=== PATIENT | male | born 1980 | race Caucasian/White ===

== ENCOUNTER 2018-03-27 13:20 | Observation (INO) | payer BC ==
[~2018-03-27] VITALS: Ht 175.3 cm; Wt 90.7 kg
[~2018-03-27 13:20] MED LIST: ASPI325; CELE200; CEPH500 PO; CYCL10 PO; EPIN.3I IM; ERYT.5TO OD; Fiorinal Capsu1 EACH PO; HYDACE5; HYDACE5 PO; HYDROMORPHONE 1 MG; META400 PO; OXYACE5T PO; PROM25 PO; RXHYDACE PO; RXPROM25 PO; [UNRECOGNIZED DRUG - OTHER]
[2018-03-27 14:03] LABS: BASOPHILS ABSOLUTE AUTO 0.05 K/mm3 (0.00-0.23); BASOPHILS PERCENT AUTO 1 % (0-2); EOSINOPHILS ABSOLUTE AUTO 0.12 K/mm3 (0.00-0.68); EOSINOPHILS PERCENT AUTO 2 % (0-6); Hematocrit 45.1 % (37.0-53.0); IMMATURE GRAN ABSOLUTE AUTO 0.03 K/mm3 (0.00-0.10); IMMATURE GRAN PERCENT AUTO 1 % (0-1); LYMPHOCYTES ABSOLUTE AUTO 0.88 K/mm3 (0.84-5.20); LYMPHOCYTES PERCENT AUTO 15 % (21-46); MONOCYTES ABSOLUTE AUTO 0.77 K/mm3 (0.16-1.47); MONOCYTES PERCENT AUTO 13 % (4-13); Mean Corpuscular HGB 29.4 pg (26.0-34.0); Mean Corpuscular HGB Conc 33.3 g/dL (31.5-36.5); Mean Corpuscular Volume 88 fL (80-100); Mean Platelet Volume 10.2 fL (9.1-12.4); NEUTROPHILS PERCENT AUTO 69 % (41-73); Platelet Count 256 K/mm3 (150-400); RDW Coefficient Variation 13.5 % (11.7-14.2); White Blood Cell Count 5.95 K/mm3 (4.00-11.30)
[2018-03-27 14:15] LABS: Salicylate <1.7 mg/dL (2.8-20.0)
[2018-03-27 14:16] LABS: Alanine Aminotransfer (ALT/SGP 37 U/L (12-78); Albumin/Globulin Ratio 1.2 (0.8-1.8); Alk Phos 74 U/L (50-136); Anion Gap 10 mmol/L (6-16); Aspartate Aminotrans (AST/SGOT 23 U/L (12-37); Bilirubin, Total 0.3 mg/dL (0.1-1.0); Blood Urea Nitrogen 8 mg/dL (8-24); Bun/Creatinine Ratio 12.1 (12.0-20.0); CO2, Blood 22 mmol/L (21-32); Calcium, Blood 8.1 mg/dL (8.5-10.1); Chloride, Blood 110 mmol/L (98-108); Creatinine, Blood 0.66 mg/dL (0.60-1.20); Globulin, Blood 3.4 g/dL (2.2-4.0); Glomerular Filtration Rate >60 (60-); Glucose, Blood 86 mg/dL (70-99); Potassium, Blood 3.5 mmol/L (3.5-5.5); Sodium, Blood 142 mmol/L (136-145); Total Protein, Blood 7.4 g/dL (6.4-8.2)
[2018-03-27 14:20] LABS: Thyroid Stimulating Hormone 0.746 uIU/mL (0.360-4.800)
[2018-03-27 14:24] LABS: Acetaminophen, Random <2.0 ug/mL (10.0-30.0); Ethanol (Alcohol), Blood, Med <3 mg/dL
[2018-03-27 14:37] LABS: Source, Urine Clean Catch
[2018-03-27 14:47] LABS: Bilirubin, Urine Neg (Neg); Blood, Urine Neg (Neg); Glucose Qualitative, Urine Neg (Neg); Ketones, Urine Neg (Neg); Leukocyte Esterase, Urine Neg (Neg); Nitrite, Urine Neg (Neg); Protein, Urine Neg (Neg); Urobilinogen, Urine NORM (Normal)
[2018-03-27 15:00] LABS: U Amphetamine Screen Not Detected; U Barbituate Screen Not Detected; U Benzodiazapine Screen Not Detected; U Buprenorphine Screen Not Detected; U Cannabinoids Screen DETECTED; U Cocaine Screen Not Detected; U Methadone Screen Not Detected; U Methamphetamine Screen Not Detected; U Opiates Screen Not Detected; U Oxycodone Screen Not Detected; U Phencyclidine Screen Not Detected; U Propoxyphene Screen Not Detected
[2018-03-27 15:01] LABS: Appearance, Urine Clear (Clear); Color, Urine Yellow (P-Yellow)
[2018-03-27] MEDS ORDERED: TYLENOL #3 PO (18:46)
== END 2018-03-29 08:25 ==
LOC: ER 13:20 → EOR 13:21
PROVIDERS: Physician Assistant; ADMIT Emergency Medicine
DX: T48.1X2A Poisoning by skeletal muscle relaxants [neuromuscular blocking agents], intentional self-harm, initial encounter (principal); F32.9 Major depressive disorder, single episode, unspecified; Z91.030 Bee allergy status; Z88.1 Allergy status to other antibiotic agents; Z87.891 Personal history of nicotine dependence; Z79.899 Other long term (current) drug therapy
CPT/HCPCS: 80053; 81003; 84443; 85025; 93005; 93010; 96372; 99285-25; G0378; G0480; J1200; J1630; J2060; Q0163; Q3014

== ENCOUNTER 2018-05-20 16:48 | Inpatient (IN) | payer BC ==
[~2018-05-20] VITALS: Ht 175.3 cm; Wt 82.7 kg
[~2018-05-20 16:48] MED LIST changes: +Acetaminophen-1 EAC1 PO
[2018-05-20 17:09] LABS: BASOPHILS ABSOLUTE AUTO 0.04 K/mm3 (0.00-0.23); BASOPHILS PERCENT AUTO 1 % (0-2); EOSINOPHILS ABSOLUTE AUTO 0.31 K/mm3 (0.00-0.68); EOSINOPHILS PERCENT AUTO 4 % (0-6); Hematocrit 39.5 % (37.0-53.0); Hemoglobin 13.5 g/dL (13.5-17.5); IMMATURE GRAN ABSOLUTE AUTO 0.02 K/mm3 (0.00-0.10); IMMATURE GRAN PERCENT AUTO 0 % (0-1); LYMPHOCYTES ABSOLUTE AUTO 1.68 K/mm3 (0.84-5.20); LYMPHOCYTES PERCENT AUTO 22 % (21-46); MONOCYTES ABSOLUTE AUTO 0.63 K/mm3 (0.16-1.47); MONOCYTES PERCENT AUTO 8 % (4-13); Mean Corpuscular HGB 29.3 pg (26.0-34.0); Mean Corpuscular HGB Conc 34.2 g/dL (31.5-36.5); Mean Corpuscular Volume 86 fL (80-100); Mean Platelet Volume 10.4 fL (9.1-12.4); NEUTROPHILS ABSOLUTE AUTO 4.87 K/mm3 (1.96-9.15); NEUTROPHILS PERCENT AUTO 65 % (41-73); Platelet Count 202 K/mm3 (150-400); RDW Coefficient Variation 13.3 % (11.7-14.2); RDW Standard Deviation 41.6 fL (35.1-46.3); White Blood Cell Count 7.55 K/mm3 (4.00-11.30)
[2018-05-20 17:22] LABS: PCO2 Arterial 40.9 mmHg (35-45); PO2 Arterial 89.9 mmHg (80-100); pH Blood Arterial 7.39 (7.35-7.45)
[2018-05-20 17:29] LABS: U Amphetamine Screen Not Detected; U Barbituate Screen Not Detected; U Benzodiazapine Screen DETECTED; U Buprenorphine Screen Not Detected; U Cannabinoids Screen DETECTED; U Cocaine Screen Not Detected; U Methadone Screen Not Detected; U Methamphetamine Screen Not Detected; U Opiates Screen DETECTED; U Oxycodone Screen Not Detected; U Phencyclidine Screen Not Detected; U Propoxyphene Screen Not Detected
[2018-05-20 17:34] LABS: Source, Urine Catheter
[2018-05-20 17:34] LABS: Ethanol (Alcohol), Blood, Med <3 mg/dL
[2018-05-20 17:35] LABS: Alanine Aminotransfer (ALT/SGP 23 U/L (12-78); Albumin, Blood 3.3 g/dL (3.4-5.0); Albumin/Globulin Ratio 1.1 (0.8-1.8); Alk Phos 61 U/L (50-136); Anion Gap 6 mmol/L (6-16); Aspartate Aminotrans (AST/SGOT 12 U/L (12-37); Bilirubin, Total 0.2 mg/dL (0.1-1.0); Blood Urea Nitrogen 7 mg/dL (8-24); Bun/Creatinine Ratio 9.9 (12.0-20.0); CO2, Blood 26 mmol/L (21-32); Calcium, Blood 7.8 mg/dL (8.5-10.1); Chloride, Blood 109 mmol/L (98-108); Creatinine, Blood 0.71 mg/dL (0.60-1.20); Free Thyroxine 1.05 ng/dL (0.70-1.60); Glomerular Filtration Rate >60 (60-); Glucose, Blood 110 mg/dL (70-99); Potassium, Blood 3.1 mmol/L (3.5-5.5); Salicylate 3.7 mg/dL (2.8-20.0); Sodium, Blood 141 mmol/L (136-145); Total Protein, Blood 6.3 g/dL (6.4-8.2)
[2018-05-20 17:43] LABS: Appearance, Urine Clear (Clear); Bilirubin, Urine Neg (Neg); Blood, Urine Neg (Neg); Color, Urine Yellow (P-Yellow); Glucose Qualitative, Urine Neg (Neg); Ketones, Urine Neg (Neg); Leukocyte Esterase, Urine Neg (Neg); Nitrite, Urine Neg (Neg); Protein, Urine Neg (Neg); Specific Gravity, Urine 1.015 (1.003-1.022); Urobilinogen, Urine NORM (Normal)
[2018-05-20] MEDS ORDERED: PROP10 PO (18:05)
[2018-05-20] MEDS ORDERED: DULOXETINE HCL40 MG PO (18:07)
[2018-05-20] MEDS ORDERED: GABA300 PO (18:09)
[2018-05-20] MEDS ORDERED: Cyclobenzaprine5 MG PO (18:09)
--- NOTE | 2018-05-20 20:15 | NUR ---
ASSESSMENT PT ADMITTED ICU 11 VIA ER. PT ARRIVED VIA GURNEY VENTED WITH RT AND ER NURSE. PT SEDATED ON PROPOFOL AT 45 MCQ/KG/MIN. PT TRANSFERED TO BED BY STAFF WITH LIFT SHEET. SLIGHT POSTERING NOTED TO BILAT LOWER EXT(FEET POINTING DOWN) AND BILAT UPPER EXT (ARMS STIFF AND INWARDLY ROTATED). PUPILS [address] GAINES AT BEDSIDE ASSESSING PT. PT WITHDRAWALS FROM PAINFUL STIMULI. NOT FOLLOWING INSTRUCTIONS. LUNGS CLEAR ON NECH VENT. VENT SETTINGS AC 14 TV 500 PEEP 5 FIO2 35%. HEART RATE REGULAR AND BP STABLE. NO EDEMA. OG CLAMPED. BT+ ABD FLAT AND SOFT. GARZA CATH PATENT DRAINING CLEAR YELLOW URINE. IV 18G TO RIGHT WRIST FIELD START SALINE LOCKED, SITE CLEAR AND FLUSHES WITHOUT DIFFICULTY. IV 18G TO LEFT AC WITH PROPOFOL INFUSING AT 45 MCQ/KG/MIN, SITE CLEAR. PT PLACED IN BILAT SOFT WRIST RESTRAINTS TO PREVENT SELF EXTUBATION.
--- NOTE | 2018-05-20 20:30 | NUR ---
FAMILY AND DR REILLY AT BEDSIDE. EXPLAINED RESTRAINTS TO FAMILY. AWAITING ORDERS FOR SEDATION ADJUNCT. PROPOFOL UP TO 50 MCQ/KG/MIN.
[2018-05-20 21:22] LABS: International Normalized Ratio 1.02; Prothrombin Time Results 10.8 Sec (9.7-11.5)
[2018-05-20 21:35] LABS: PCO2 Arterial 37.5 mmHg (35-45); PO2 Arterial 101 mmHg (80-100); pH Blood Arterial 7.42 (7.35-7.45)
--- NOTE | 2018-05-20 21:35 | NUR ---
FAMILY HOME FOR THE NIGHT. RT DECREASED FIO2 TO 30%. DR GAINES AT BEDSIDE.
--- NOTE | 2018-05-20 22:35 | NUR ---
POISON CONTROL RECEIVED CALL FROM POISON CONTROL. REVIEWED LABS AND MEDICATIONS. RECEIVED ORDERS FOR LFT AND ASA LEVEL WITH NEXT LABS.
--- NOTE | 2018-05-21 00:04 | NUR ---
REASSESSMENT PT CONT INTUBATED AND ON MECH VENT. MED WITH VERSED FOR MOUTH CARE AND TURNING. PT NOT FOLLOWING INSTURCTIONS. LUNGS CLEAR. ORAL CARE DONE AND PT REPOSITIONED. OG TO LIS.
--- NOTE | 2018-05-21 01:47 | NUR ---
HYPOTENSION BP DOWN TO 81/59 HEART RATE 82, 250 ML OF LR STARTED. PROPOFOL DECREASED TO 35 MCQ/KG/MIN. CALL TO DR GAINES. RECEIVED ORDERS TO GIVE 1 LITER BOLUS OF NS, INCREASE LR TO 150 ML/HR AND START DARIUS SYNEPHRINE TO KEEP MAP ABOVE 60.
[2018-05-21 03:55] LABS: BASOPHILS ABSOLUTE AUTO 0.02 K/mm3 (0.00-0.23); BASOPHILS PERCENT AUTO 0 % (0-2); EOSINOPHILS ABSOLUTE AUTO 0.29 K/mm3 (0.00-0.68); EOSINOPHILS PERCENT AUTO 4 % (0-6); Hematocrit 35.8 % (37.0-53.0); Hemoglobin 12.3 g/dL (13.5-17.5); IMMATURE GRAN ABSOLUTE AUTO 0.04 K/mm3 (0.00-0.10); IMMATURE GRAN PERCENT AUTO 1 % (0-1); LYMPHOCYTES PERCENT AUTO 22 % (21-46); MONOCYTES ABSOLUTE AUTO 0.82 K/mm3 (0.16-1.47); MONOCYTES PERCENT AUTO 11 % (4-13); Mean Corpuscular HGB 29.4 pg (26.0-34.0); Mean Corpuscular HGB Conc 34.4 g/dL (31.5-36.5); Mean Corpuscular Volume 85 fL (80-100); Mean Platelet Volume 10.7 fL (9.1-12.4); NEUTROPHILS ABSOLUTE AUTO 4.51 K/mm3 (1.96-9.15); NEUTROPHILS PERCENT AUTO 62 % (41-73); Platelet Count 183 K/mm3 (150-400); RDW Coefficient Variation 13.3 % (11.7-14.2); RDW Standard Deviation 41.3 fL (35.1-46.3); Red Blood Cell Count 4.19 M/mm3 (4.30-5.90); White Blood Cell Count 7.28 K/mm3 (4.00-11.30)
--- NOTE | 2018-05-21 04:00 | NUR ---
REASSESSMENT PT OPENED MOUTH WHEN ASKED FOR MOUTH CARE AND OPENED ONE EYE SLIGHTLY. THAN BECAME AGITATED AND STARTED TO PULL ON RESTRAINTS. PT REPOSITIONED AND REACHED FOR ET TUBE. BILAT WRIST RESTRAINTS ON. PROPOFOL INCREASED TO 25 MCQ/KG/MIN.
[2018-05-21 04:10] LABS: International Normalized Ratio 1.11; Prothrombin Time Results 11.7 Sec (9.7-11.5)
[2018-05-21 04:25] LABS: Alanine Aminotransfer (ALT/SGP 25 U/L (12-78); Albumin, Blood 2.8 g/dL (3.4-5.0); Albumin/Globulin Ratio 1.1 (0.8-1.8); Alk Phos 49 U/L (50-136); Anion Gap 11 mmol/L (6-16); Aspartate Aminotrans (AST/SGOT 3 U/L (12-37); Bilirubin, Direct <0.1 mg/dL (0.0-0.3); Bilirubin, Indirect Unable to Calculate mg/dL (0.1-0.7); Bilirubin, Total 0.2 mg/dL (0.1-1.0); Blood Urea Nitrogen 6 mg/dL (8-24); Bun/Creatinine Ratio 9.5 (12.0-20.0); CO2, Blood 24 mmol/L (21-32); Calcium, Blood 7.6 mg/dL (8.5-10.1); Chloride, Blood 114 mmol/L (98-108); Creatinine, Blood 0.63 mg/dL (0.60-1.20); Globulin, Blood 2.5 g/dL (2.2-4.0); Glomerular Filtration Rate >60 (60-); Glucose, Blood 96 mg/dL (70-99); Magnesium, Blood 2.1 mg/dL (1.6-2.4); Potassium, Blood 3.7 mmol/L (3.5-5.5); Salicylate 2.3 mg/dL (2.8-20.0); Sodium, Blood 149 mmol/L (136-145); Total Protein, Blood 5.3 g/dL (6.4-8.2)
--- NOTE | 2018-05-21 05:17 | NUR ---
POISON CONTROL RECEIVED A CALL FROM POISON CONTROL. REVIEWED LABS AND EKG. TYLENOL LEVEL,LFT AND INR TO BE DRAWN 2HRS BEFORE NAC IS FINISHED AT 1500.
--- NOTE | 2018-05-21 07:53 | NUR ---
CARE ASSUMED CARE AND REPORT ASSUMED FROM MONTEZ MOREAU. PT INTUBATED AND SEDATED. VENT AC 14, TV 500, PEEP 5, FIO2 25%. LUNG SOUNDS CLEAR. AT START OF SHIFT, PROPOFOL GTT AT 25 MCG. PT SUDDENLY BECAME RESTLESS, AGITATED, PULLING AGAINST RESTRAINTS SO HARD HE WAS ABLE TO PULL ARM OUT OF RESTRAINT AND ATTEMPTED TO REACH UP TO FACE. ARM RESTRAINED AGAIN; RESTRAINTS CHECKED, VERSED 2MG IVP GIVEN, AND PROPOFOL GTT INCREASED. WILL CONTINUE TO TITRATE PROPOFOL TO MAINTAIN SEDATION AND STABLE BP. AFEBRILE. NSR, HR 90S. GARZA CATH SECURED AND PATENT. WILL ATTEMPT FULL SEDATION VACATION WHEN PT CALMED DOWN. MD REILLY BEDSIDE TO EVALUATE PT THIS AM. ACETYLCYSTEINE INFUSING PER ORDER. LR INFUSING AT 125 ML/HR PER ORDER. WILL CONTINUE TO MONITOR CLOSELY.
--- NOTE | 2018-05-21 10:23 | NUR ---
EXTUBATION PROPOFOL GTT TURNED OFF AT 0930 AND VENT CHANGED TO PS 8/5. PT EXTUBATED AT 1005 AND OGT REMOVED. SINCE THEN, PT HAS TOLERATED DRINKING WATER. WILL ATTEMPT TO MOBILIZE PT AND REMOVED CATHETER. WILL CONTINUE TO MONITOR.
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
--- NOTE | 2018-05-21 11:43 | NUR ---
REASSESSMENT PT HAS BEEN MOSTLY SLEEPING SINCE EXTUBATION. 2 MD HOLD INITIATED AND PT AWARE OF RIGHTS. VSS. NSR, HR 110. HAD EXTENSIVE CONVERSATION WITH PT ABOUT THE IMPORTANCE OF COOPERATING WITH STAFF, AND LEAVING LINES AND TUBES ALONE. PT AGREES AND STATES HE DOES NOT WANT TO GO TO LOCKED ROOM IN ED. HE IS CALM AT THIS TIME. CALL LIGHT WITHIN REACH. ACETYLCYSTEINE REMAINS INFUSING PER ORDER. LR INFUSING AT 150 ML/HR PER ORDER. WILL CONTINUE TO MONITOR.
[2018-05-21 15:28] LABS: International Normalized Ratio 1.03; Prothrombin Time Results 10.9 Sec (9.7-11.5)
[2018-05-21 15:35] LABS: Acetaminophen, Random <2.0 ug/mL (10.0-30.0); Alanine Aminotransfer (ALT/SGP 17 U/L (12-78); Alk Phos 62 U/L (50-136); Aspartate Aminotrans (AST/SGOT 5 U/L (12-37); Bilirubin, Direct 0.1 mg/dL (0.0-0.3); Bilirubin, Indirect 0.2 mg/dL (0.1-0.7); Bilirubin, Total 0.3 mg/dL (0.1-1.0); Globulin, Blood 2.9 g/dL (2.2-4.0); Total Protein, Blood 5.9 g/dL (6.4-8.2)
--- NOTE | 2018-05-21 16:16 | NUR ---
REASSESSMENT PT CURRENTLY IN TELEPSYCH CONFERENCE. PT IS CALM AND COOPERATIVE AT THIS TIME, SLEEPING INTERMITTENTLY. STATES HE IS WEAK AND HAS DIFFICULTY WITH FINE MOTOR SKILLS. [place], HR 120-140; MD GREY MADE AWARE AND METOPROLOL 25 MG PO GIVEN. SPO2 96% RA. STATES HIS THROAT IS SORE. PT BEING MONITORED BY CAMERA. LR MIV CHANGED TO 75 ML/HR PER ORDER. ACETYLCYSTEINE INFUSION ALMOST COMPLETED. WILL CONTINUE TO MONITOR.
--- NOTE | 2018-05-21 17:33 | NUR ---
SHIFT SUMMARY PT EXTUBATED AT 1000 THIS AM. SINCE THEN, HE HAS SLEPT ON/OFF DURING SHIFT. FATHER AND FRIEND VISITED IN AFTERNOON. TELEPYSCH CONFERENCE COMPLETED. PT CALM AND COOPERATIVE ENTIRE SHIFT. ELEVATED HR THIS AFTERNOON; SCHEDULED METOPROLOL STARTED THIS AFTERNOON. HR NOW 110. BP STABLE. LR INFUSING AT 75 ML/HR PER ORDER. WILL CONTINUE TO MONITOR.
--- NOTE | 2018-05-21 19:15 | NUR ---
ASSUMED CARE OF PT, BEDSIDE REPORT RECEIVED. PT IS ALERT AND ORIENTED SPEAKING IN FULL SENTANCES, EXPRESSES CONCERN REGARDING BELONGINGS AT HOME AND REQUESTS PHONE FOR COMMUNICATION WITH HIS FATHER. DISCUSSED WITH DAY SHIFT RN AND AGREED TO ALLOW PT 10 MINUTES OF PHONE TIME. PT IS AGREEABLE AND VERBALIZES UNDERSTANDING.
--- NOTE | 2018-05-21 19:30 | NUR ---
PHONE REMOVED PER HEAD OF SALES, EXPLAINED 2 MD HOLD POLICIES TO PT, PT AGREEABLE. HS ASSESSMENT, PT DENIES N/V, STATES THAT HE IS HUNGRY AND INQUIRES REGARDING DINNER, DOES REMEMBER ROAST BEEF AT MEALTIME, REQUESTS PUDDING AND HALF SANDWICH. PT IS SPEAKING IN FULL SENTANCES, DENIES N/V, DENIES CP/PRESSURE, DENIES SOB/DYSPNEA, DOES STATE THAT HE CAN FEEL A RAPID HEART RATE AND INQUIRES REGARDING CURRENT RATE. LUNGS ARE CLEAR THROUGHOUT, SATS HIGH 90S ON ROOM AIR, NO INCREASED WORK OF BREATHING IS NOTED AT THIS TIME, RATE WNL. HRR, SINUS TACH ON MONITOR, RATE 130S, SYSTOLIC PRESSURE 110S MAP MAINTAINING, PULSES FULL X 4 EXTREMITIES, NO EDEMA IS NOTED, BRISK CAP REFILL. NORMOACTIVE BOWEL TONES NOTED AT THIS TIME, ABD SOFT, NONTENDER TO PALPATION. GARZA CATH REMAINS IN PLACE DRAINING CLEAR YELLOW URINE TO GRAVITY. LR INFUSING AT 75 ML/HR TO RIGHT FOREARM IV, SITE WNL.
[2018-05-22 03:50] LABS: BASOPHILS ABSOLUTE AUTO 0.03 K/mm3 (0.00-0.23); BASOPHILS PERCENT AUTO 0 % (0-2); EOSINOPHILS PERCENT AUTO 2 % (0-6); Hematocrit 37.6 % (37.0-53.0); Hemoglobin 12.7 g/dL (13.5-17.5); IMMATURE GRAN ABSOLUTE AUTO 0.03 K/mm3 (0.00-0.10); IMMATURE GRAN PERCENT AUTO 0 % (0-1); LYMPHOCYTES ABSOLUTE AUTO 1.25 K/mm3 (0.84-5.20); LYMPHOCYTES PERCENT AUTO 13 % (21-46); MONOCYTES ABSOLUTE AUTO 1.17 K/mm3 (0.16-1.47); MONOCYTES PERCENT AUTO 12 % (4-13); Mean Corpuscular HGB 29.1 pg (26.0-34.0); Mean Corpuscular HGB Conc 33.8 g/dL (31.5-36.5); Mean Corpuscular Volume 86 fL (80-100); Mean Platelet Volume 10.6 fL (9.1-12.4); NEUTROPHILS ABSOLUTE AUTO 7.34 K/mm3 (1.96-9.15); NEUTROPHILS PERCENT AUTO 73 % (41-73); Platelet Count 207 K/mm3 (150-400); RDW Coefficient Variation 13.5 % (11.7-14.2); RDW Standard Deviation 42.2 fL (35.1-46.3); Red Blood Cell Count 4.36 M/mm3 (4.30-5.90); White Blood Cell Count 10.02 K/mm3 (4.00-11.30)
[2018-05-22 04:17] LABS: Anion Gap 6 mmol/L (6-16); Blood Urea Nitrogen 6 mg/dL (8-24); CO2, Blood 27 mmol/L (21-32); Calcium, Blood 8.3 mg/dL (8.5-10.1); Chloride, Blood 113 mmol/L (98-108); Creatinine, Blood 0.86 mg/dL (0.60-1.20); Glomerular Filtration Rate >60 (60-); Glucose, Blood 94 mg/dL (70-99); Potassium, Blood 3.7 mmol/L (3.5-5.5); Sodium, Blood 146 mmol/L (136-145)
--- NOTE | 2018-05-22 06:42 | NUR ---
PT RESTS QUIETLY THROUGHOUT SHIFT, INITIALLY WITHDRAWN WITH A FLAT AFFECT. THIS AM HE IS NOTED TO SMILE OCCASIONALLY AND LAUGH. HE IS CONVERSATIONAL WITH HADOOP ADMINISTRATOR STUDENT REGARDING ANATOMY AND PHYSIOLOGY OF PULMONARY CIRCULATION. DISCUSSES HX OF WORKING WITH [employer] IN [place] SUCH ADMINISTRATION OF MEDICATIONS INTRAPERTIONEAL IF IV ACCESS WAS UNABLE TO BE OBTAINED. OTHERWISE NO ACUTE CHANGES THIS SHIFT.
--- NOTE | 2018-05-22 08:30 | NUR ---
DR. HERNANDEZ IN TO SEE PATIENT. CARE MANAGEMENT INFORMED THAT TELEPSYCH RECOMMENDS INPATIENT TREATMENT. CARE MANAGEMENT STATES THEY WILL BE IN TO SEE PATIENT SOON.
[2018-05-22 08:36] LABS: Alanine Aminotransfer (ALT/SGP 18 U/L (12-78); Albumin, Blood 3.1 g/dL (3.4-5.0); Alk Phos 60 U/L (50-136); Anion Gap 8 mmol/L (6-16); Aspartate Aminotrans (AST/SGOT 13 U/L (12-37); Bilirubin, Total 0.4 mg/dL (0.1-1.0); Blood Urea Nitrogen 7 mg/dL (8-24); Bun/Creatinine Ratio 8.3 (12.0-20.0); CO2, Blood 26 mmol/L (21-32); Calcium, Blood 8.3 mg/dL (8.5-10.1); Chloride, Blood 112 mmol/L (98-108); Creatinine, Blood 0.84 mg/dL (0.60-1.20); Globulin, Blood 3.1 g/dL (2.2-4.0); Glomerular Filtration Rate >60 (60-); Glucose, Blood 88 mg/dL (70-99); Potassium, Blood 3.8 mmol/L (3.5-5.5); Sodium, Blood 146 mmol/L (136-145); Total Protein, Blood 6.2 g/dL (6.4-8.2)
--- NOTE | 2018-05-22 09:31 | NUR ---
INITIAL ASSESSMENT PATIENT IS RESTING IN BED AND IS ALERT AND ORIENTED. PATIENT IS AFEBRILE. DR HERNANDEZ AND CARE MANAGEMENT IN TO SEE PATIENT THIS AM. PATIENT EXPRESSED SOME ANXIETY REGARDING CONVERSATION WITH CARE MANAGEMENT ABOUT INPATIENT PSYCH FACILITY AND STATES HE "DOES NOT WANT TO GO TO GROUP THERAPY". PATIENT LUNG SOUNDS ARE CLEAR T/O. PATIENT REMAINS SATTING 90% OR GREATER ON RA. HR IS IN THE HIGH 90S TO LOW 100S. BP IS STABLE. PATIENT HAS SOME MILD DISTENTION IN ABDOMEN AND HYPOACTIVE BOWEL TONES. IS WNL. SKIN IS WNL. IV'S WERE DISCONTINUED PER DR REQUEST THIS AM. BED LOW. CALL LIGHT IN REACH. WILL CONTINUE TO MONITOR.
--- NOTE | 2018-05-22 12:29 | NUR ---
PATIENT IS RESTING IN BED. VSS. SPEAKING WITH FATHER WHO IS AT THE BEDSIDE. NO COMPLAINTS OF PAIN AT THIS TIME. WILL CONTINUE TO MONITOR.
--- NOTE | 2018-05-22 12:41 | NUR ---
POISON CONTROL CALLED TO CHECK UP ON PATIENT. THEY HAVE NO RECOMMENDATIONS AT THIS TIME AND STATE THEY ARE SIGNING OFF AT THIS TIME.
--- NOTE | 2018-05-22 12:42 | NUR ---
PATIENT AGITATED AND UPSET AFTER FINDING OUT THAT HE WILL BE GOING TO AN INPATIENT PSYCH CENTER. PATIENT TOSSED WALKED OVER. FATHER REMOVED TABLE AND WALKER. PATIENT BACK IN BED BUT REMAINS MAD AND CONTINUES TO STATE OVER AND OVER THAT HE WILL NOT GO TO AN INPATIENT PSYCH CENTER.
--- NOTE | 2018-05-22 14:18 | NUR ---
PATIENT AGITATION HAS INCREASED AGAIN BECAUSE HE CANNOT HAVE HIS BELONGINGS WHILE ON 2 MD HOLD. SECURITY CALLED BECAUSE PATIENT THREATENING STAFF, "IF TRY TO GET HIM INTO INPATIENT [facility] FACILITY". SECURITY ARRIVES. PATIENT LEAVES ROOM AND UNIT. 911 CALLED AND INFORMED OF PATIENT LEAVING.
--- NOTE | 2018-05-22 14:23 | NUR ---
PATIENT BACK TO UNIT TO "GET HIS BELONGINGS". SECURITY AND PATIENT'S FATHER FOLLOWING BEHIND. NURSE TOOK BELONGINGS TO ANOTHER ROOM. PATIENT WALKED BACK INTO ROOM. SECURITY AND FATHER OUTSIDE ROOM. PATIENT YELLING AT NURSES, SECURITY, AND FATHER.
--- NOTE | 2018-05-22 15:52 | NUR ---
CALLED AND SPOKE TO DR. HERNANDEZ PATIENT CONTINUES TO ASK FOR PSYCH/ DEPRESSION MEDS AND STATES THAT HE "THINKS HE IS GOING THROUGH WITHDRAWALS". PATIENT AGREED TO TAKE SOMETHING ORALLY TO HELP WITH ANXIETY/ AGITATION. FATHER IN ROOM AT BEDSIDE TALKING WITH PATIENT. ORDERS RECEIVED.
--- NOTE | 2018-05-22 16:11 | NUR ---
PATIENT RESTING IN BED QUIETLY. NO COMPLAINTS. PATIENT ANXIOUS BUT COOPERATIVE. PATIENT GIVEN PRN ATIVAN. FATHER AT BEDSIDE SPEAKING WITH PATIENT. VSS. NO OTHER ACUTE CHANGES TO NOTE ON AT THIS TIME. WILL CONTINUE TO MONITOR.
--- NOTE | 2018-05-22 17:55 | NUR ---
SHIFT SUMMARY PATIENT IS RESTING QUIETLY IN BED. VSS. PATIENT HAD SOME PERIODS OF AGITATION DURING SHIFT. PATIENT WAS STARTED ON PRN ATIVAN AND STATES HIS ANXIETY IS BETTER. PATIENT WAS STARTED ON A NICORETTE GUM PRN. PATIENT IS AFEBRILE. PATIENT LUNG SOUNDS ARE CLEAR T/O. PATIENT IS SATTING AT OR ABOVE 90% ON RA. HR IS IN THE 80S-90S NOW. BP IS STABLE. GI//SKIN IS WNL. PATIENT IS A FALL RISK DUE TO DROP FOOT AND REMAINS ON A 2 MD HOLD. PATIENT HAS NO OTHER COMPLAINTS AT THIS TIME. BED IS LOW. CALL LIGHT IS IN REACH.
--- NOTE | 2018-05-22 19:20 | NUR ---
ASSUMED CARE OF PT PT IS RESTING QUIETLY RECLINING IN BED WATCHING TV. EXPRESSES DISLIKE OF POLICY REGARDING KEEPING CURTAINS OPEN UNLESS STAFF ARE IN THE ROOM. STATES THAT HE DOES NOT WANT SOMEONE STANDING IN THE ROOM WHILE HE USES THE TOILET. EXPLAINED THAT POLICY WAS IMPLEMENTED FOR HIS SAFETY SECONDARY TO HIM BEING A HIGH RISK FOR SUICIDE. HE IS CONVERSATIONAL AND VERBALIZES UNDERSTANDING. HE EXPLAINS SOME OF THE [place]AF[place] [facility] [place] WHILE MAINTAINING SAFETY SUCH PRESSURE SENSORS ALONG THE TOPS OF DOORS AND KNOBS THAT DON'T PROVIDE ANCHOR POINTS. HE ALSO EXPRESSES THAT HE WANTS TO GO OUTSIDE AND HAVE A CIGARETTE AND DOES NOT APPROVE OF POLICY THAT DOES NOT ALLOW FOR HIM TO GO OUT TO SMOKING AREA A 2 MD HOLD. HE AGAIN STATES THAT HE WANTS HIS PHONE. HE DOES VERBALIZE UNDERSTANDING OF REASONING BEHIND POLICIES THAT PREVENT THE THINGS HE WANTS WHILE MAINTAINING THAT HE IS NOT A DANGER TO HIMSELF AT THIS TIME, HE STATES THAT HE IS NOT IN CRISIS ANYMORE. WILL MONITOR.
--- NOTE | 2018-05-23 06:16 | NUR ---
PT UP TO SHOWER EARLY THIS SHIFT WITH FWW, TOLERATED WELL. CONTINUES CONVERSATIONAL THIS AM ALTHOUGH DOES CONTINUE TO VERBALIZE FRUSTRATION WITH POLICIES PREVENTING HIM FROM AMBULATING OUTSIDE TO SMOKE WELL POLICIES PREVENTING PULLING ROOM CURTAIN CLOSED WITHOUT STAFF IN ROOM. ASSESSMENT IS OTHERWISE UNCHANGED THROUGHOUT SHIFT.
--- NOTE | 2018-05-23 10:28 | NUR ---
INITIAL ASSESSMENT PATIENT IS RESTING QUIETLY IN BED WATCHING TELEVISION. PATIENT IS AFEBRILE. PATIENT WAS GIVEN NICORETTE GUM FOR COMPLAINT OF NICOTINE CRAVING. PATIENT HAS A HISTORY OF CHRONIC BACK PAIN, BUT STATES PAIN IS TOLERABLE AT THIS TIME. PATIENT IS SATTING 90% OR GREATER ON RA. HR IS IN THE 90S. NSR. BP IS STABLE. PATIENT HAS HYPOACTIVE BOWEL TONES. AND SKIN IS WNL. PATIENT IS INDEPENDENT IN ROOM. BED LOW. CALL LIGHT IN REACH. WILL CONTINUE TO MONITOR.
--- NOTE | 2018-05-23 12:35 | NUR ---
PATIENT RESTING QUIETLY IN BED. PRN ATIVAN GIVEN FOR COMPLAINT OF INCREASED ANXIETY. NO COMPLAINTS OF PAIN AT THIS TIME. NO ACUTE CHANGES TO NOTE ON. WILL CONTINUE TO MONITOR.
--- NOTE | 2018-05-23 13:30 | NUR ---
PATIENT ASKED SEVERAL TIMES IN AM TO SPEAK WITH HIS DAD BECAUSE HE WANTS TO SEE HIS DAUGHTER. NURSE FINALLY HAD TIME TO SPEAK WITH CHARGE NURSE, CRISTIANO MOMIN, AND PATIENT'S FATHER, LEIGH. CHARGE NURSE OKAY WITH FATHER COMING IN AND BRINGING PATIENT'S DAUGHTER LONG FATHER IS IN ROOM WITH PATIENT THE ENTIRE TIME AND VISIT LIMITED TO 30 MINUTES, SINCE PATIENT WILL BE TRANSFERRED TO INPATIENT FACILITY. PATIENT'S FATHER STATES THAT TODAY WOULD BE BETTER THAN TOMORROW AND STATES THAT HE WILL SPEAK TO PATIENT'S . PATIENT NOTIFIED THAT [facility] [place], BUT THAT HE MAY POSSIBLY HAVE A BED TOMORROW AT [facility]. PATIENT ALSO INFORMED THAT NURSE SPOKE WITH FATHER. NURSE INFORMED THAT VISIT MAY OR MAY NOT HAPPEN AND LIMITS SET IF VISIT DOES HAPPEN. PATIENT AGREES WITH LIMITS AND STATES HE WILL REMAIN COOOPERATIVE.
--- NOTE | 2018-05-23 16:36 | NUR ---
PATIENT'S FATHER HERE WITH PATIENT'S DAUGHTER FOR 30 MINUTES. FATHER ALSO SET LIMITATIONS WITH PATIENT.
--- NOTE | 2018-05-23 17:10 | NUR ---
PATIENT'S FATHER AND DAUGHTER LEFT. VISIT WENT WELL. PATIENT CALM AND COOPERATIVE.
--- NOTE | 2018-05-23 18:30 | NUR ---
SHIFT SUMMARY PATIENT IS RESTING IN BED QUIETLY WATCHING TELEVISION. VSS. PATIENT HAS EXPRESSED THAT HE WOULD LIKE TO BE PLACED BACK ON HIS "PSYCH MEDS" AND HAS SHOWN SOME AGITATION THROUGHOUT THE SHIFT, HOWEVER HAS BEEN MOSTLY CALM AND COOPERATIVE TODAY. PATIENT FATHER BROUGHT DAUGHTER IN TO VISIT FOR SHORT TIME TODAY. PATIENT WAS APPRECIATIVE OF THIS AND MAINTAINED LIMITS THAT WERE SET. PATIENT IS AFEBRILE. PATIENT HAS TAKEN PRN ATIVAN FOR ANXIETY AND PRN NICORETTE GUM FOR CIGARETTE CRAVINGS THROUGHOUT THE SHIFT TODAY. PATIENT REMAINS SATTING 90% OR GREATER ON RA WITH CLEAR LUNG SOUNDS. NSR W HR IN THE 90S-LOW 100S. BP IS STABLE. GI//SKIN ARE ALL WNL. NO ACUTE CHANGES TO NOTE AT THIS TIME. BED LOW, CALL LIGHT WITHIN REACH.
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
--- NOTE | 2018-05-24 00:11 | NUR ---
PATIENT APPEARS TO BE SLEEPING, RESP EVEN AND UNLABORED. VITAL SIGNS HELD AT THIS TIME TO ALLOW PATIENT TO SLEEP. REMOTE MONITORING CONTINUES WELL FREQUENT VISUAL CHECKING ON PATIENT.
--- NOTE | 2018-05-24 05:47 | NUR ---
SUMMARY PATIENT SLEEPING OFF AND ON T/O NIGHT. AWAKENS EASILY TO VERBAL STIMULI. NO CHANGES T/O NIGHT.
--- NOTE | 2018-05-24 08:40 | NUR ---
ASSESS- Pt. awake a/o x 3. pt. cooperative,calm. Sts. has usual n/t in left leg. Chronic back pain is at a 3 pain level which is his normal.
--- NOTE | 2018-05-24 16:17 | NUR ---
PT HAS BEEN ACCEPTED AT [facility] AND WILL DC AROUND 1630. PT HAS BEEN AWARE THAT MAY HAPPEN AND HAS TRIED TO MAKE CALLS TO HIS DR'S TO HAVE IT CANCELLED. PT ANGRY THAT HE IS UNABLE TO MAKE ANYONE LISTEN TO HIM. HAS REPEATEDLY ASKED FOR HIS PHONE AND TO BE ABLE TO GO OUT AND SMOKE. TRANSPORT WILL BE HERE AT 1630 DAYAN AND SECURITY TO BE ON STANDBY.
--- NOTE | 2018-05-24 17:35 | NUR ---
DISCHARGE- PT D/C'D VIA SECURE TRANSPORT TO [facility]. SECURITY AND CARE MANAGEMENT ESCORTING PT TO CAR.
--- NOTE | 2018-05-24 17:36 | NUR ---
BELONGINGS- CLOTHING IN A RED SUITCASE SENT WITH PT. ALSO CELL PHONE AND DIFFERENTIAL SPECIALIST IN SUITCASE. KNIFE, MATT, AND CANE SENT HOME WITH DAD.
== END 2018-05-24 17:40 | DRG 917 ==
LOC: ER 16:48 → ICUW 19:18
PROVIDERS: Emergency Medicine; Internal Medicine; Internal Medicine Critical Care Medicine; ADMIT Family Medicine
PROC: 5A1945Z Respiratory Ventilation, 24-96 Consecutive Hours (ICD-10-PCS; principal; 2018-05-20)
PROC: 0BH17EZ Insertion of Endotracheal Airway into Trachea, Via Natural or Artificial Opening (ICD-10-PCS; 2018-05-20)
DX: T39.1X2A Poisoning by 4-Aminophenol derivatives, intentional self-harm, initial encounter (principal); R40.20 Unspecified coma; J96.90 Respiratory failure, unspecified, unspecified whether with hypoxia or hypercapnia; F32.3 Major depressive disorder, single episode, severe with psychotic features; T43.212A Poisoning by selective serotonin and norepinephrine reuptake inhibitors, intentional self-harm, initial encounter; T48.1X2A Poisoning by skeletal muscle relaxants [neuromuscular blocking agents], intentional self-harm, initial encounter; T42.8X2A Poisoning by antiparkinsonism drugs and other central muscle-tone depressants, intentional self-harm, initial encounter; T42.4X2A Poisoning by benzodiazepines, intentional self-harm, initial encounter; Y92.019 Unspecified place in single-family (private) house as the place of occurrence of the external cause; F17.210 Nicotine dependence, cigarettes, uncomplicated; Z89.202 Acquired absence of left upper limb, unspecified level
CPT/HCPCS: 31720; 36415; 36600; 51702; 70450; 71045; 80048; 80053; 80076; 81003; 82248; 82330; 82803; 82947; 83735; 84100; 84439; 84443; 85025; 85610; 93005; 93010; 94002; 94003; 96360-59; 99291-25; 99292; C9113; G0480; J0132; J2250; J2704; J3480; J7030; J7060; J7070; J7120

== ENCOUNTER 2019-05-04 14:55 | Emergency (ER) | payer MEDICARE, OTHER ==
[~2019-05-04] VITALS: Ht 175.3 cm; Wt 97.5 kg
[~2019-05-04 14:55] MED LIST changes: +Cyclobenzaprine5 MG PO; +DULOXETINE HCL40 MG PO; +GABA300 PO; +PROP10 PO
== END 2019-05-04 15:19 | disposition home or self-care (01) ==
LOC: ER 14:55
DX: S40.212A Abrasion of left shoulder, initial encounter (principal); S40.211A Abrasion of right shoulder, initial encounter; S50.311A Abrasion of right elbow, initial encounter; S00.81XA Abrasion of other part of head, initial encounter; F17.200 Nicotine dependence, unspecified, uncomplicated; Z88.5 Allergy status to narcotic agent; Z88.6 Allergy status to analgesic agent; Z88.1 Allergy status to other antibiotic agents; Z91.030 Bee allergy status; Y04.8XXA Assault by other bodily force, initial encounter
CPT/HCPCS: 99284

== ENCOUNTER 2024-11-29 22:17 | Emergency (ER) | payer MEDICARE ==
[~2024-11-29] VITALS: Ht 175.3 cm; Wt 90.7 kg
[2024-11-29 22:50] LABS: BASOPHILS ABSOLUTE AUTO 0.04 K/mm3 (0.00-0.23); BASOPHILS PERCENT AUTO 0 % (0-2); EOSINOPHILS ABSOLUTE AUTO 0.05 K/mm3 (0.00-0.68); EOSINOPHILS PERCENT AUTO 1 % (0-6); Hematocrit 42.1 % (37.0-53.0); Hemoglobin 15.5 g/dL (13.5-17.5); IMMATURE GRAN ABSOLUTE AUTO 0.05 K/mm3 (0.00-0.10); IMMATURE GRAN PERCENT AUTO 1 % (0-1); LYMPHOCYTES ABSOLUTE AUTO 1.59 K/mm3 (0.84-5.20); LYMPHOCYTES PERCENT AUTO 16 % (21-46); MONOCYTES ABSOLUTE AUTO 0.81 K/mm3 (0.16-1.47); MONOCYTES PERCENT AUTO 8 % (4-13); Mean Corpuscular HGB Conc 36.8 g/dL (31.5-36.5); Mean Corpuscular Volume 81 fL (80-100); NEUTROPHILS ABSOLUTE AUTO 7.25 K/mm3 (1.96-9.15); NEUTROPHILS PERCENT AUTO 74 % (41-73); NRBC ABSOLUTE 0.00 K/mm3 (0.00-0.02); NRBC Auto 0.0 /100 WBC (0.0-0.2); Platelet Count 239 K/mm3 (150-400); RDW Coefficient Variation 13.9 % (11.7-14.2); RDW Standard Deviation 40.9 fL (35.1-46.3)
[2024-11-29 23:08] LABS: Alanine Aminotransfer (ALT/SGP 53.0 U/L (12-78); Albumin, Blood 4.2 g/dL (3.4-5.0); Albumin/Globulin Ratio 1.3 (0.8-1.8); Anion Gap 9.0 mmol/L (3-11); Aspartate Aminotrans (AST/SGOT 38.0 U/L (12-37); Bilirubin, Total 1.2 mg/dL (0.1-1.0); Blood Urea Nitrogen 10.0 mg/dL (8-24); CO2, Blood 28.0 mmol/L (21-32); Calcium, Blood 8.7 mg/dL (8.5-10.1); Chloride, Blood 101.0 mmol/L (98-108); Creatinine, Blood 0.79 mg/dL (0.60-1.20); Globulin, Blood 3.3 g/dL (2.2-4.0); Glucose, Blood 107.0 mg/dL (70-99); Potassium, Blood 2.9 mmol/L (3.5-5.5); Sodium, Blood 135.0 mmol/L (136-145); Total Protein, Blood 7.5 g/dL (6.4-8.2)
[2024-11-30 02:03] LABS: Magnesium, Blood 2.2 mg/dL (1.6-2.4); Phosphorus, Blood 3.3 mg/dL (2.5-4.9)
[2024-11-30 02:09] LABS: Prothrombin Time Results 11.1 Sec (9.7-11.5)
[2024-11-30] MEDS ORDERED: NS 1,000 ML IV SCH (02:15)
[2024-11-30 02:45] VITALS: BP 161/108
[2024-11-30] MEDS ORDERED: DiphenhydrAMINE HCl 50 MG/ML 1ML Vial IV ONE (02:50)
== END 2024-11-30 03:07 | disposition home or self-care (01) ==
LOC: ER 22:17
PROVIDERS: Emergency Medicine; Physician Assistant
DX: R21 Rash and other nonspecific skin eruption (principal); E87.6 Hypokalemia; E86.0 Dehydration; F17.200 Nicotine dependence, unspecified, uncomplicated; Z91.030 Bee allergy status; Z88.1 Allergy status to other antibiotic agents; Z88.5 Allergy status to narcotic agent; Z59.89 Other problems related to housing and economic circumstances
CPT/HCPCS: 80053; 83735; 84100; 85025; 85610; 85730; 99283; A9270; J1200; J7030